=== PATIENT | male | born 1940 | race Caucasian/White ===

== ENCOUNTER → 2018-01-03 | Outpatient (CLI) | payer MEDICARE, MEDICAID ==
--- NOTE | 2018-01-03 12:35 | Diagnostic Imaging Report ---
Indications: Fall, pain Technique: Two views of the thoracic spine Comparison: None Findings: Bony alignment is normal. Vertebral body heights are preserved. Is mild multilevel degenerative disc narrowing. Bones appear demineralized. The pedicles are intact. No gross paraspinous mass. There is mild smooth kyphotic deformity without focal compression abnormality Impression: No acute process
--- NOTE | 2018-01-03 12:42 | Diagnostic Imaging Report ---
Indication: Knee pain, status post fall Technique: 3 views of the ] knee Comparison: None Findings: There is suggestion of a small suprapatellar effusion. There is heterogeneous sclerosis of the distal femur, proximal tibia, and of the fibula. There is mild medial compartment degenerative joint space narrowing. There are also degenerative changes of the patellofemoral compartment. At least 2 intra-articular loose bodies are demonstrated. On the lateral view, there is suggestion of lucencies in the anterior cortex of the distal femur. However, these do not extend through the shaft and are not confirmed on any other views. Impression: Anterior distal femoral lucencies on lateral view, on that is somewhat concerning for nondisplaced fracture but not confirmed on any other views and likely not significant. Suspect small suprapatellar effusion Degenerative changes, as described At least 2 intra-articular loose bodies are demonstrated. Unusual mixed sclerotic appearance of the distal femur and proximal tibia. Suspect artifactual due to asymmetric osteoporotic change Findings discussed by phone with Dr. Louis at the time of interpretation
--- NOTE | 2018-01-03 12:43 | Diagnostic Imaging Report ---
Indication: Pain, status post fall Technique: 4 views of the left knee Comparison: None Findings: No definite effusion. No acute fractures or dislocations. There is minimal medial compartmental degenerative joint space narrowing. Impression: No acute process
== END | disposition home or self-care (01) ==
LOC: MRI 08:27
DX: M25.562 Pain in left knee (principal); M25.561 Pain in right knee; M54.6 Pain in thoracic spine; M25.512 Pain in left shoulder
CPT/HCPCS: 72070

== ENCOUNTER → 2018-03-01 | Outpatient (CLI) | payer MEDICARE, MEDICAID ==
--- NOTE | 2018-03-01 16:22 | Diagnostic Imaging Report ---
Indication: Back pain Technique: Sagittal T1 and T2 fast spin echo, sagittal STIR, axial T1 and T2 fast spin-echo images of the lumbar spine Comparison: none Findings: There are 5 nonrib-bearing lumbar-type vertebral bodies, assuming 12 paired ribs. There is a approximately 1.2 cm rounded T1/T2 hyperintense structure in the L4 vertebral body compatible with a hemangioma. There is T1/T2 signal hyperintensity in the inferior endplate of L5 and the superior endplate of S1 compatible with Modic type degenerative changes. There is heterogeneous marrow signal in the sacrum and posterior iliac bones bilaterally which may be related to marrow reconversion. The possibility of an infiltrative process is not entirely excluded but thought less likely as there is no appreciable soft tissue component or expansion of the marrow cavity. Correlation with hematologic studies recommended. There is no evidence of acute fracture. The tip the conus terminates at the level of T12-L1. No focal cord signal abnormality identified. At T11-T12: A small disc bulge minimally indents the thecal sac. There is no significant central canal stenosis or foraminal narrowing. At T12-L1: There is no significant central canal stenosis or foraminal narrowing. At L1-L2: A mild disc bulge minimally indents the thecal sac resulting in minimal central canal stenosis. No significant exit foraminal stenosis. At L2-L3: Mild broad-based disc bulge and hypertrophy of the ligamentum flavum results in mild central canal stenosis. There is mild bilateral foraminal narrowing, left greater than right. At L3-L4: Mild disc bulge and hypertrophy of the ligamentum flavum result in mild to moderate central canal stenosis at this level. There is mild to moderate left-sided foraminal stenosis. There is facet arthrosis. At L4-L5: A moderate disc bulge and hypertrophy of the ligamentum flavum results in severe central canal stenosis (series 7 image #33) there is associated at least moderate bilateral foraminal narrowing at this level. There is facet arthrosis. At L5-S1: Disc bulge with hypertrophy of the ligamentum flavum result in mild to moderate central canal stenosis and mild bilateral foraminal narrowing at the level. The abdominal ureters normal in caliber. There are multiple simple appearing cysts noted in the bilateral kidneys. IMPRESSION: Multilevel degenerative change of the lumbar spine most severe at L4-L5 where there is severe central canal stenosis as above. Heterogeneous marrow signal in the sacrum and posterior iliac bones bilaterally which may be related to marrow reconversion. The possibility of an infiltrative process is not entirely excluded but thought less likely as there is no appreciable soft tissue component or expansion of the marrow cavity. Correlation with hematologic studies recommended.
== END | disposition home or self-care (01) ==
LOC: MRI 11:27
DX: M51.36 Other intervertebral disc degeneration, lumbar region (principal)
CPT/HCPCS: 72148

== ENCOUNTER → 2018-04-14 | Outpatient (CLI) | payer MEDICARE, MEDICAID ==
[2018-04-14 11:49] LABS: BILIRUBIN, URINE NEGATIVE (NEGATIVE); COLOR,URINE PALE YELLOW; GLUCOSE, URINE (UA) NEGATIVE (NEGATIVE); KETONES,URINE NEGATIVE (NEGATIVE); LEUKOCYTE ESTERASE ,URINE 1+ (NEGATIVE); NITRITE,URINE NEGATIVE (NEGATIVE); PH,URINE 6 (4.5-8.0); PROTEIN,URINE 3+ (NEGATIVE); UROBILINOGEN,URINE NORMAL MG/DL (0.0-1.0)
[2018-04-14 11:51] LABS: APPEARANCE,URINE SLIGHTLY CLOUDY
[2018-04-14 12:03] LABS: ANION GAP 11 mmol/L (5-15); BLOOD UREA NITROGEN 38 mg/dL (7-18); CARBON DIOXIDE 21 MMOL/L (21-32); CHLORIDE 107 MMOL/L (98-107); CREATINE KINASE 488 U/L (26-308); CREATININE 2.8 MG/DL (0.55-1.30); PHOSPHORUS 2.9 MG/DL (2.5-4.9); POTASSIUM 4.9 MMOL/L (3.5-5.1); SODIUM 139 MMOL/L (136-145)
== END | disposition home or self-care (01) ==
LOC: LAB 09:54
DX: N18.4 Chronic kidney disease, stage 4 (severe) (principal); I12.9 Hypertensive chronic kidney disease with stage 1 through stage 4 chronic kidney disease, or unspecified chronic kidney disease; N17.9 Acute kidney failure, unspecified; E78.2 Mixed hyperlipidemia; N25.81 Secondary hyperparathyroidism of renal origin
CPT/HCPCS: 36415; 80048; 81001; 82044; 82550; 82570; 83970; 84100; 84165; 86704; 86803; 87340

== ENCOUNTER 2018-05-11 12:35 | Outpatient (CLI) | payer MEDICARE, MEDICAID ==
[2018-05-11 13:23] LABS: ANION GAP 13 mmol/L (5-15); BLOOD UREA NITROGEN 43 mg/dL (7-18); CALCIUM 8.7 MG/DL (8.5-10.1); CARBON DIOXIDE 23 MMOL/L (21-32); CHLORIDE 106 MMOL/L (98-107); CREATININE 2.7 MG/DL (0.55-1.30); SODIUM 142 MMOL/L (136-145)
== END 2018-05-11 14:35 | disposition home or self-care (01) ==
LOC: LAB 12:35
DX: N17.9 Acute kidney failure, unspecified (principal); N18.4 Chronic kidney disease, stage 4 (severe)
CPT/HCPCS: 36415; 80048

== ENCOUNTER 2018-06-14 13:08 | Outpatient (CLI) | payer MEDICARE, MEDICAID ==
[2018-06-14 13:44] LABS: ANION GAP 10 mmol/L (5-15); BLOOD UREA NITROGEN 52 mg/dL (7-18); CALCIUM 8.4 MG/DL (8.5-10.1); CARBON DIOXIDE 24 MMOL/L (21-32); CHLORIDE 104 MMOL/L (98-107); CREATININE 3.1 MG/DL (0.55-1.30); POTASSIUM 3.7 MMOL/L (3.5-5.1); SODIUM 138 MMOL/L (136-145)
== END 2018-06-14 15:08 | disposition home or self-care (01) ==
LOC: LAB 13:08
DX: N18.4 Chronic kidney disease, stage 4 (severe) (principal)
CPT/HCPCS: 36415; 80048

== ENCOUNTER 2018-07-06 09:47 | Day surgery (SDC) | payer MEDICARE, MEDICAID ==
[~2018-07-06] VITALS: Ht 171.4 cm; Wt 70.3 kg
[2018-07-06] VITALS (10 sets, daily range): BP systolic 137–169; BP diastolic 75–95
[2018-07-06] MEDS ORDERED: TAMSULOSIN HCL0.4 MG ORAL (10:32)
[2018-07-06] MEDS ORDERED: GEMFIBROZIL600 MG ORAL (10:32)
[2018-07-06] MEDS ORDERED: VIRAMUNE XR400 MG PO (10:32)
[2018-07-06] MEDS ORDERED: TERBINAFINE HC250 MG PO (10:32)
[2018-07-06] MEDS ORDERED: ATORVASTATIN CA40 MG ORAL (10:32)
[2018-07-06] MEDS ORDERED: EPIVIR150 MG ORAL (10:32)
[2018-07-06] MEDS ORDERED: HYDROCHLOROTHIA25 MG ORAL (10:32)
[2018-07-06] MEDS ORDERED: ZETIA10 MG ORAL (10:32)
[2018-07-06] MEDS ORDERED: BACLOFEN20 MG ORAL (10:32)
[2018-07-06] MEDS ORDERED: ATORVASTATIN CA20 MG ORAL (10:32)
[2018-07-06] MEDS ORDERED: ISENTRESS400 MG ORAL (10:32)
[2018-07-06] MEDS ORDERED: AMLODIPINE BESYL5 MG ORAL (10:32)
--- NOTE | 2018-07-06 11:10 | Pre-Procedure Note/Attestation ---
Pre-Procedure Note/Attestation Complete Prior to Procedure Planned Procedure: not applicable Procedure Narrative: US guided renal parenchymal biopsy Indications for Procedure Pre-Operative Diagnosis: renal insufficiency, progressive Attestation I attest that I discussed the nature of the procedure; its benefits; risks and complications; and alternatives (and the risks and benefits of such alternatives ), prior to the procedure, with the patient (or the patient's legal outbound call center representative). I attest that, if there was a reasonable possibility of needing a blood transfusion, the patient (or the patient's legal outbound call center representative) was given the [facility] standardized written summary, pursuant to the [place] Blood Safety Act ([place] Health and Safety Code # 1645, as amended). I attest that I re-evaluated the patient just prior to the surgery and that there has been no change in the patient's H&P, except as documented below: Kaiden Gomez MD Jul 06, 2018 11:10
--- NOTE | 2018-07-06 11:12 | Moderate Sedation - Procedural ---
Moderate Sedation HPI Home Medication Reported Medications Baclofen* (LIORESAL*) 20 Mg Tablet, 20 MG ORAL THREE TIMES A DAY PRN for To Patient Comfort, TAB 07/06/18 Lamivudine* (EPIVIR*) 150 Mg Tablet, 300 MG ORAL TWICE A DAY, #60 TAB 0 Refills 07/06/18 Terbinafine Hcl* (LAMISIL*) 250 Mg Tablet, 250 MG PO DAILY, TAB 07/06/18 Atorvastatin Calcium* (ATORVASTATIN CALCIUM*) 20 Mg Tablet, 20 MG ORAL BEDTIME, TAB 07/06/18 Atorvastatin Calcium* (ATORVASTATIN CALCIUM*) 40 Mg Tablet, 40 MG ORAL BEDTIME, TAB 07/06/18 Ezetimibe (ZETIA*) 10 Mg Tablet, 10 MG ORAL BEDTIME, TAB 07/06/18 Nevirapine (VIRAMUNE XR) 400 Mg Tab.er.24h, 400 MG PO DAILY, TAB 07/06/18 Tamsulosin Hcl (TAMSULOSIN HCL*) 0.4 Mg Cap.er.24h, 0.4 MG ORAL BEDTIME, CAP 07/06/18 Raltegravir (Isentress) 400 Mg Tablet, 400 MG ORAL EVERY 12 HOURS, TAB 07/06/18 Amlodipine Besylate* (AMLODIPINE BESYLATE*) 5 Mg Tablet, 5 MG ORAL DAILY, TAB 07/06/18 Hydrochlorothiazide* (HYDROCHLOROTHIAZIDE*) 25 Mg Tablet, 25 MG ORAL DAILY, TAB 07/06/18 Gemfibrozil (GEMFIBROZIL*) 600 Mg Tablet, 600 MG ORAL AC, TAB 0 Refills 07/06/18 Patient History Allergies: Coded Allergies: No Known Allergies (Unverified , 06/28/18) Pre-Procedural Mod Sedation Pre-Assessment Time: 11:11 Pre-Sedation Assessment: Elective Airway Assessment (Malampati): III Evaluation Hx of untoward rxns to mod sed: No Procedures/Plans: Radiology Plan for Moderate Sedation: Midazolam, Fentanyl ASA Score: II Informed Consent The nature of the procedure/sedation; its benefits; risks and complications; and alternatives (and the risks and benefits of such alternatives) were discussed with the patient (or their legal traveling representative), prior to the procedure. All questions were answered to the patient's (or their legal traveling representative's) satisfaction and the patient (or their legal traveling representative) gave informed consent to the procedure. I attest that I re-evaluated the patient just prior to the surgery and that there has been no change in the patient's H&P, except as documented below: Post Procedure Assessment Post Procedure TIme: 12:00 Communication: No Apparent Limitation Mental Status: Awake Respiration: Unlabored Skin Condition: WNL Adomen: WNL Nausea: NO Vomiting: NO Kaiden Gomez MD Jul 06, 2018 11:12
[2018-07-06 11:21] LABS: BASOPHILS % (AUTO) 1.2 % (0.0-2.0); EOSINOPHILS % (AUTO) 3.4 % (0.0-3.0); HEMATOCRIT 40.9 % (42.0-52.0); HEMOGLOBIN 13.8 G/DL (14.2-18.0); LYMPHOCYTES % (AUTO) 22.9 % (20.0-45.0); MEAN CORPUSCULAR VOLUME 99 FL (80-99); MONOCYTES % (AUTO) 7.5 % (1.0-10.0); PLATELET COUNT 277 K/UL (150-450); RED BLOOD COUNT 4.15 M/UL (4.70-6.10); WHITE BLOOD COUNT 9.5 K/UL (4.8-10.8)
[2018-07-06 11:29] LABS: ANION GAP 12 mmol/L (5-15); BLOOD UREA NITROGEN 51 mg/dL (7-18); CALCIUM 8.2 MG/DL (8.5-10.1); CARBON DIOXIDE 23 MMOL/L (21-32); CHLORIDE 107 MMOL/L (98-107); POTASSIUM 3.3 MMOL/L (3.5-5.1); SODIUM 142 MMOL/L (136-145)
[2018-07-06] MEDS ORDERED: fentaNYL 100 mcg/2 mL IV ONE (11:49)
[2018-07-06] MEDS ORDERED: Midazolam 2mg/2ml Inj ONE (11:49)
--- NOTE | 2018-07-06 12:30 | Brief Operative Note ---
Immediate Post Operative Note Operative Note Pre-op Diagnosis: renal insufficiency, progressive Procedure: L renal parenchymal biopsy Post-op Diagnosis: same as pre-op Surgeon: Marce Gaines Anesthesia: local Specimen: yes - 4 18 guage cores Complications: none Condition: stable Fluids: none Drains: none Implant(s) used?: No Kaiden Gaines MD Jul 06, 2018 12:30
--- NOTE | 2018-07-22 16:00 | Diagnostic Imaging Report ---
Indication: Renal insufficiency Technique: Informed consent obtained prior to commencement of the procedure. Procedural timeout performed. Ultrasound used to localize optimal puncture site. Sterilely prepped and draped. Local anesthesia with 1% lidocaine. Under real-time ultrasound guidance, total 4 needle passes made into the lower pole of the left kidney. Tangential approach used to maximize number of glomeruli. Specimen submitted to pathology. Follow-up sonography performed, demonstrating no evidence of perinephric hematoma. The patient tolerated the procedure well, without immediate complication. Comparison: none Findings: Intraprocedural images document needle placement within the left renal lower pole. 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
== END 2018-07-06 14:15 | disposition home or self-care (01) ==
LOC: SUR 09:47 → ULS 09:47
DX: I12.9 Hypertensive chronic kidney disease with stage 1 through stage 4 chronic kidney disease, or unspecified chronic kidney disease (principal); N18.9 Chronic kidney disease, unspecified
CPT/HCPCS: 36415; 76942; 80048; 85025; 85610; 85730; J2250

== ENCOUNTER 2018-07-13 09:37 | Emergency (ER) | payer MEDICARE, MEDICAID ==
[~2018-07-13] VITALS: Ht 172.7 cm; Wt 70.3 kg
[~2018-07-13 09:37] MED LIST: AMLODIPINE BESYL5 MG ORAL; ATORVASTATIN CA20 MG ORAL; ATORVASTATIN CA40 MG ORAL; BACLOFEN20 MG ORAL; EPIVIR150 MG ORAL; GEMFIBROZIL600 MG ORAL; HYDROCHLOROTHIA25 MG ORAL; ISENTRESS400 MG ORAL; TAMSULOSIN HCL0.4 MG ORAL; TERBINAFINE HC250 MG PO; VIRAMUNE XR400 MG PO; ZETIA10 MG ORAL
[2018-07-13] MEDS ORDERED: Norco 5mg/325mg tab ORAL ONE (10:15)
[2018-07-13] MEDS ORDERED: Cephalexin 500mg cap ORAL ONE (10:15)
[2018-07-13] MEDS ORDERED: CEPHALEXIN500 MG ORAL (10:19)
[2018-07-13] MEDS ORDERED: NORCO 5-325 TA1 EACH ORAL (10:19)
--- NOTE | 2018-07-13 10:19 | Emergency Room Report ---
History of Present Illness General Chief Complaint: Upper Extremity Injury Source: Patient Present Illness HPI 77M c/o redness/swelling pain dorsum of the right hand. Recently had an IV in that hand for a kidney biopsy. 4 days ago he has had no fever, no trauma, no fever, no shortness of breath, no travel history, no leg swelling, no chest pain , no diaphoresis, no exertional complaints, no nausea, no vomiting, no diarrhea , no abdominal pain. Tolerating po fin HIV positive Allergies: Coded Allergies: No Known Allergies (Unverified , 06/28/18) Nursing Documentation-[facility] Past Medical History: No History, Except For Hx Cardiac Problems: Yes Hx Hypertension: Yes Hx Cancer: No Hx Gastrointestinal Problems: No Hx Neurological Problems: No Review of Systems Constitutional: Reports: no symptoms Eye: Reports: no symptoms ENT: Reports: no symptoms Respiratory: Reports: no symptoms Cardiovascular: Reports: no symptoms Gastrointestinal: Reports: no symptoms Genitourinary: Reports: no symptoms Musculoskeletal: Reports: see HPI, joint swelling, muscle pain Skin: Reports: no symptoms Psychiatric: Reports: no symptoms Neurological: Reports: no symptoms Endocrine: Reports: no symptoms Hematologic/Lymphatic: Reports: no symptoms Allergic: Reports: no symptoms All Other Systems: negative except mentioned in HPI Physical Exam Vital Signs Date Time Temp Pulse Resp B/P (MAP) Pulse Ox O2 Delivery O2 Flow Rate FiO2 07/13/18 09:40 98.1 92 20 156/87 97 Room Air Sp02 EP Interpretation: reviewed, normal General Appearance: normal inspection, well appearing, no apparent distress, alert, GCS 15, non-toxic Head: normocephalic, atraumatic Eyes: bilateral eye normal inspection, bilateral eye PERRL, bilateral eye EOMI ENT: normal ENT inspection, hearing grossly normal, normal pharynx, no angioedema, normal voice, moist mucus membranes Neck: normal inspection, full range of motion, supple, no meningismus, no bony tend Respiratory: normal inspection, lungs clear, normal breath sounds, no rhonchi, no respiratory distress, no retraction, no accessory muscle use, no wheezing Cardiovascular #1: normal inspection, regular rate, rhythm, no edema Gastrointestinal: normal inspection, normal bowel sounds, non tender, soft, no mass, non-distended Musculoskeletal: gait/station normal, normal range of motion, swelling, other - right hand dorsum: cellulitis, tender Neurologic: normal inspection, alert, oriented x3, responsive, motor strength/ tone normal Psychiatric: normal inspection, judgement/insight normal, memory normal Suicide Risk Assessment: Suicidal Ideation: No Had intent to initiate attempt: No Pt's plan for suicide attempt: No Has means to complete attempt: No Skin: normal inspection, normal color, no rash, warm/dry Medical Decision Making Diagnostic Impression: Primary Impression: Cellulitis of right hand Last Vital Signs Date Time Temp Pulse Resp B/P (MAP) Pulse Ox O2 Delivery O2 Flow Rate FiO2 07/13/18 09:40 98.1 92 20 156/87 97 Room Air Status: improved Disposition: HOME, SELF-CARE Condition: Stable Scripts Hydrocodone Bit/Acetaminophen 5-325* (NORCO 5-325*) 1 Each Tablet 1 TAB ORAL Q6H PRN for For Pain, #10 TAB 0 Refills Prov: Ty Romero M.D. 07/13/18 Cephalexin* (KEFLEX*) 500 Mg Capsule 500 MG ORAL EVERY 6 HOURS, #28 CAP Prov: Ty Romero M.D. 07/13/18 Referrals: Angelo Louis MD (PCP) Patient Instructions: Cellulitis, [id number] Ty Romero M.D. Jul 13, 2018 10:19
[2018-07-13 10:41] VITALS: BP 137/81
[2018-07-13 10:42] VITALS: BP 137/81
== END 2018-07-13 10:40 | disposition home or self-care (01) ==
LOC: EMR 10:03
DX: L03.113 Cellulitis of right upper limb (principal); I10 Essential (primary) hypertension
CPT/HCPCS: 99283

== ENCOUNTER 2018-08-24 11:53 | Emergency (ER) | payer MEDICARE, MEDICAID ==
[~2018-08-24] VITALS: Ht 170.2 cm; Wt 70.3 kg
[~2018-08-24 11:53] MED LIST changes: +CEPHALEXIN500 MG ORAL; +NORCO 5-325 TA1 EACH ORAL
--- NOTE | 2018-08-24 12:05 | NUR ---
ED Nurse Note: pt. reported being not able to hear with right ear since this morning, no pain however patient states that it started happening after he took a shower
[2018-08-24 12:09] VITALS: BP 153/95
[2018-08-24] MEDS ORDERED: DEBROX15 M1 BOTH EARS (12:16)
--- NOTE | 2018-08-24 12:17 | Emergency Room Report ---
History of Present Illness General Chief Complaint: Earache Source: Patient Present Illness HPI 77-year-old male patient presents the ER complaining of decreased hearing in right ear. Reports that he thinks his "right ear is clogged". Reports symptoms began earlier today after taking a shower, states he believes that water may have gotten in his ear. Reports that he uses Q-tips at home. Denies tinnitus. Denies syncope or dizziness. Denies ear pain. Denies fever, chest pain, shortness of breath. Denies other aggravating or relieving factors. Allergies: Coded Allergies: No Known Allergies (Unverified , 06/28/18) Patient History Reviewed Nursing Documentation: PMH: Agreed; PSxH: Agreed Nursing Documentation-PMH Past Medical History: No History, Except For Hx Cardiac Problems: Yes Hx Hypertension: Yes Hx Cancer: No Hx Gastrointestinal Problems: No Hx Neurological Problems: No Review of Systems All Other Systems: negative except mentioned in HPI Physical Exam Vital Signs Date Time Temp Pulse Resp B/P (MAP) Pulse Ox O2 Delivery O2 Flow Rate FiO2 08/24/18 12:04 98.2 91 17 164/98 98 Room Air Sp02 EP Interpretation: reviewed, normal General Appearance: well appearing, no apparent distress, alert, GCS 15, non- toxic Head: normocephalic, atraumatic Eyes: bilateral eye normal inspection, bilateral eye PERRL ENT: hearing grossly normal, normal pharynx, no angioedema, normal voice, uvula midline, moist mucus membranes, other - Cerumen impaction right ear; excessive cerumen noted in left ear; no pain with ear pulling nonerythematous or edematous ear canal Neck: full range of motion, no bony tend Respiratory: lungs clear, normal breath sounds, no rhonchi, no respiratory distress, no accessory muscle use, no wheezing, speaking full sentences Cardiovascular #1: regular rate, rhythm, no edema Neurologic: alert, oriented x3, responsive, motor strength/tone normal, sensory intact Psychiatric: mood/affect normal Skin: no rash Medical Decision Making PA Attestation Dr. Ceballos is my supervising Physician whom patient management has been discussed with. Diagnostic Impression: Primary Impression: Cerumen impaction ER Course Pt presents to ED c/o hearing loss in right ear. DDX considered but are not limited to rhinitis, sinusitis, otitis media, otitis externa, cerumen impaction. VITAL SIGNS are WNL, patient is afebrile. ED INTERVENTIONS: PE shows impacted cerumen in right ear, excessive cerumen in left ear. No mastoid swelling or erythema, no rash or vesicles on face. Patient ear cleaned and flushed with saline and hydrogen peroxide. Hearing symptoms improved, cerumen still present. Will provide Rx for Debrox. Patient instructed not to use Q-tips. Follow-up with primary care provider for further treatment and referral. Discuss referral to ENT. Provided with contact information for ENT specialist. ER precautions given. DISCHARGE: Rx provided for Debrox At this time pt is stable for d/c to home. patient resting comfortably, no acute distress, nontoxic appearing, talking without difficulty, smiling. Patient to take medications as instructed Will provide with patient care instructions and any necessary prescriptions. Care plan and follow-up instructions provided. Patient instructed to follow-up with primary care in 3 - 5 days. Patient questions asked and answered. patient reports understanding and agreement treatment plan. ER precautions given. Patient instructed to return to ER immediately for any new or worsening of symptoms including but not limited to increasing SOB, persistent fever. - Please note that this Emergency Department Report was dictated using [employer] layer technology software, occasionally this can lead to erroneous entry secondary to interpretation by the dictation equipment. Last Vital Signs Date Time Temp Pulse Resp B/P (MAP) Pulse Ox O2 Delivery O2 Flow Rate FiO2 08/24/18 12:04 98.2 91 17 164/98 98 Room Air Disposition: HOME, SELF-CARE Condition: Stable Scripts Carbamide Peroxide (DEBROX) 15 Ml Drops 10 DROP BOTH EARS TWICE A DAY for 4 Days, ML 0 Refills Prov: Ramon Chandra 08/24/18 Patient Instructions: Cerumen Impaction Additional Instructions: Followup with primary care provider in 3 -5 days. Request referral to ENT. Avoid swimming, does not use Q-tips in ear. Take medications as directed. Patient questions asked and answered. ER precautions given, patient instructed to return to ER immediately for any new or worsening of symptoms. Ramon Chandra Aug 24, 2018 12:17
[2018-08-24 16:08] VITALS: BP 153/95
--- NOTE | 2018-08-24 16:09 | NUR ---
ED Nurse Note: Pt is cleared for discharge per ERMD. Discharge instrcution/paper/ prescription given and explained to the patient, patient verbalized understanding. pt is alert and oriented x4, ambulated out of ED steady gait with all belongigns. pt is stable for DC. VSS. pt ID band removed.
== END 2018-08-24 14:00 | disposition home or self-care (01) ==
LOC: EMR 12:40
DX: H61.21 Impacted cerumen, right ear (principal); I10 Essential (primary) hypertension; Z86.79 Personal history of other diseases of the circulatory system
CPT/HCPCS: 99283

== ENCOUNTER 2018-10-27 11:52 | Outpatient (CLI) | payer MEDICARE, MEDICAID ==
[~2018-10-27 11:52] MED LIST changes: +DEBROX15 M1 BOTH EARS
[2018-10-27 12:23] LABS: BASOPHILS % (AUTO) 1.5 % (0.0-2.0); EOSINOPHILS % (AUTO) 3.6 % (0.0-3.0); HEMOGLOBIN 12.3 G/DL (14.2-18.0); LYMPHOCYTES % (AUTO) 23.9 % (20.0-45.0); MEAN CORPUSCULAR VOLUME 103 FL (80-99); MONOCYTES % (AUTO) 8.5 % (1.0-10.0); NEUTROPHILS % (AUTO) 62.4 % (45.0-75.0); PLATELET COUNT 301 K/UL (150-450); RED BLOOD COUNT 3.61 M/UL (4.70-6.10); WHITE BLOOD COUNT 7.7 K/UL (4.8-10.8)
[2018-10-27 12:39] LABS: ALANINE AMINOTRANSFERASE 34 U/L (12-78); ALBUMIN 2.8 G/DL (3.4-5.0); ALBUMIN/GLOBULIN RATIO 0.6 (1.0-2.7); ALKALINE PHOSPHATASE 151 U/L (46-116); ANION GAP 14 mmol/L (5-15); ASPARTATE AMINO TRANSFERASE 33 U/L (15-37); BILIRUBIN,TOTAL 0.2 MG/DL (0.2-1.0); BLOOD UREA NITROGEN 62 mg/dL (7-18); CALCIUM 7.9 MG/DL (8.5-10.1); CARBON DIOXIDE 21 MMOL/L (21-32); CHLORIDE 107 MMOL/L (98-107); CREATININE 3.8 MG/DL (0.55-1.30); POTASSIUM 3.2 MMOL/L (3.5-5.1); SODIUM 142 MMOL/L (136-145)
== END 2018-10-27 13:52 | disposition home or self-care (01) ==
LOC: LAB 11:52
DX: I12.9 Hypertensive chronic kidney disease with stage 1 through stage 4 chronic kidney disease, or unspecified chronic kidney disease (principal); N18.4 Chronic kidney disease, stage 4 (severe)
CPT/HCPCS: 36415; 80053; 85025

== ENCOUNTER 2018-12-28 12:32 | Outpatient (CLI) | payer MEDICARE, MEDICAID ==
[2018-12-28 13:19] LABS: ANION GAP 13 mmol/L (5-15); BLOOD UREA NITROGEN 47 mg/dL (7-18); CALCIUM 8.7 MG/DL (8.5-10.1); CARBON DIOXIDE 21 MMOL/L (21-32); CHLORIDE 106 MMOL/L (98-107); CREATININE 3.6 MG/DL (0.55-1.30); POTASSIUM 3.8 MMOL/L (3.5-5.1); SODIUM 140 MMOL/L (136-145)
[2018-12-28 13:30] LABS: BASOPHILS % (AUTO) 1.6 % (0.0-2.0); HEMATOCRIT 34.8 % (42.0-52.0); HEMOGLOBIN 11.2 G/DL (14.2-18.0); LYMPHOCYTES % (AUTO) 26.3 % (20.0-45.0); MEAN CORPUSCULAR VOLUME 104 FL (80-99); MONOCYTES % (AUTO) 7.8 % (1.0-10.0); NEUTROPHILS % (AUTO) 61.3 % (45.0-75.0); PLATELET COUNT 315 K/UL (150-450); RED BLOOD COUNT 3.34 M/UL (4.70-6.10); RED CELL DISTRIBUTION WIDTH 14.4 % (11.6-14.8); WHITE BLOOD COUNT 7.4 K/UL (4.8-10.8)
== END 2018-12-28 14:32 | disposition home or self-care (01) ==
LOC: EDBD 12:32 → LAB 12:32
DX: N18.4 Chronic kidney disease, stage 4 (severe) (principal)
CPT/HCPCS: 36415; 80048; 85025